=== PATIENT | male | born 1930 | race Caucasian/White ===

== ENCOUNTER 2018-08-04 19:23 | Emergency (ER) | payer MEDICARE, MEDICAID ==
[~2018-08-04] VITALS: Ht 172.7 cm; Wt 56.2 kg
[~2018-08-04 19:23] MED LIST: NOHOMEMEDICATIONS
[2018-08-04 19:56] LABS: HEMATOCRIT 41.2 % (42.0-52.0); HEMOGLOBIN 13.8 gm/dL (14.0-18.0); MCH 32.2 pg (26.0-34.0); MCHC 33.5 g/dL (28.0-37.0); MCV 96.2 fL (80.0-100.0); MPV 7.2 fl. (7.2-11.1); NUCLEATED RBCS 0 /100WBC; PLATELET COUNT* 193 thou/uL (150-400); RBC 4.28 mil/uL (4.50-6.00); RDW-CV 13.1 % (10.5-14.5); WBC 15.5 thou/uL (4.0-11.0)
[2018-08-04 20:00] LABS: ANION GAP 12 mmol/L (7-16); BUN 21 mg/dL (7-18); CALCIUM 9.1 mg/dL (8.5-10.1); CHLORIDE 102 mmol/L (98-107); CO2 26 mmol/L (21-32); CREATININE 0.9 mg/dL (0.6-1.3); GLUCOSE 210 mg/dL (70-99); POTASSIUM 4.2 mmol/L (3.5-5.1); SODIUM 140 mmol/L (136-145)
[2018-08-04 20:05] LABS: PROTIME 10.4 Seconds (9.20-11.50)
[2018-08-04 20:09] LABS: ALBUMIN 3.8 g/dL (3.4-5.0); ALKALINE PHOSPHATASE 136 U/L (46-116); SGOT 27 U/L (15-37); SGPT 33 U/L (30-65); TOTAL BILIRUBIN 0.5 mg/dL (<0.1-1.0); TOTAL PROTEIN 7.1 g/dL (6.4-8.2); TROPONIN-I LEVEL <0.06 ng/mL (<0.06)
[2018-08-04 20:30] LABS: ABSOLUTE LYMPHOCYTES 1.9 thou/uL (0.8-5.3); ABSOLUTE MONOCYTES 0.8 thou/uL (0.0-1.2); ABSOLUTE NEUTROPHILS 12.9 thou/uL (1.6-8.1)
[2018-08-04 20:31] LABS: PLATELET ESTIMATE ADEQUATE
[2018-08-04 22:30] LABS: URINE BILIRUBIN NEGATIVE (Negative); URINE BLOOD NEGATIVE (Negative); URINE CLARITY CLEAR; URINE COLOR YELLOW; URINE GLUCOSE-RANDOM TRACE (Negative); URINE KETONES TRACE (Negative); URINE LEUKOCYTES-REFLEX NEGATIVE (Negative); URINE NITRITE-REFLEX NEGATIVE (Negative); URINE PROTEIN NEGATIVE (Negative); URINE UROBILINOGEN 0.2 E.U./dl (0.2-1.0)
[2018-08-04 23:30] VITALS: BP 145/74
--- NOTE | 2018-08-05 14:45 | EKG ---
[place] [address] ELECTROCARDIOGRAM REPORT Name: AMMON LUBIN Room: [facility]#: [id number] Admission: 08/04/18 Attend Phys: Discharge: 08/04/18 Date of : 34 Report #: [id number] THIS REPORT FOR: //name// [facility] [place] ED Test Date: 2018-08-04 Test Time: 19:35:28 Pat Name: AMMON LUBIN Department: Room: Gender: M Resident Engineer: CK : [id number] Requested By: Rosalba Najera Order Number: [id number] MD: Jose Rowley Measurements Intervals [place] Rate: 90 P: 44 DC: 202 QRS: 8 QRSD: 98 T: QT: 409 QTc: 501 Interpretive Statements Sinus rhythm Borderline prolonged DC interval Nonspecific T abnormalities, lateral leads Prolonged QT interval Low voltage in the limb leads Baseline wander in lead(s) I,III,aVR,aVL,aVF,V1 Compared to ECG 09/14/2012 13:22:27 T-wave abnormality now present Prolonged QT interval now present Sinus bradycardia no longer present Electronically Signed On 08-05-2018 14:45:31 CDT by Jose Rowley [email or web address] <ELECTRONICALLY SIGNED> By: Jose Rowley MD, FACC 08/05/18 1445 [id number] 34 Jose Rowley MD, [facility] /EPI
== END 2018-08-04 23:30 | disposition short-term general hospital (02) ==
LOC: M.ERS 19:23
PROVIDERS: Emergency Medicine
DX: S42.032A Displaced fracture of lateral end of left clavicle, initial encounter for closed fracture (principal); S22.42XA Multiple fractures of ribs, left side, initial encounter for closed fracture; K56.699 Other intestinal obstruction unspecified as to partial versus complete obstruction; R55 Syncope and collapse; W18.39XA Other fall on same level, initial encounter; Y93.89 Activity, other specified; Y92.89 Other specified places as the place of occurrence of the external cause; Y99.8 Other external cause status